=== PATIENT | male | born 1970 | race Two or more races ===

== ENCOUNTER 2024-12-12 19:04 | Emergency (ER) | payer MEDICAID, OTHER ==
[~2024-12-12] VITALS: Ht 188 cm; Wt 86.3 kg
[2024-12-12] MEDS ORDERED: SERT50TA PO (19:43)
[2024-12-12] MEDS ORDERED: ARIP2TAB PO (19:43)
--- NOTE | 2024-12-12 19:50 | ED.PDOC ---
History of Present Illness HPI Comments This is a 54-year-old male who comes in with chief complaint of needing his medication refilled for his schizophrenia. The patient recently was released from correction yesterday. He states that he was supposed to get medications from the crisis center but he was unable to get his Abilify as well as his Zoloft. The patient has been hearing voices but states that he was not suicidal but just concerned that he can not survive without his medication. The patient denies any nausea, vomiting or diarrhea. There has been no fever or chills. The patient was able to ambulate into the emergency department's without any difficulty. Chief Complaint: Mental Health Time Seen by MD: 19:14 Reviewed Notes: Nurses Notes, Medications, Allergies (Allergies listed above) Allergies: Coded Allergies: Ketorolac Tromethamine (Verified Allergy, Unknown, 12/12/24) Home Meds Active Scripts Aripiprazole (Abilify) 2 Mg Tab, 5 MG PO QAM for 30 Days, #30 TAB Prov:CARRI ROSE MD 12/12/24 Sertraline Hcl (Zoloft) 50 Mg Tab, 1 TAB PO QHSP PRN for 30 Days, #30 TAB 2 Refills Prov:CARRI ROSE MD 12/12/24 Information Source: Patient Mode of Arrival: Ambulatory Severity: Mild Timing: Days Duration: Since onset Prehospital treatment: None Associated signs and symptoms No nausea, vomiting or diarrhea Past Medical History PAST MEDICAL HISTORY: Depression, HTN, Schizophrenia Surgical History (Other): Right knee surgery Family History Family History: No family hx of Cancer, No family hx of DM, No family hx of Heart k[place] Social History Smoker: Cigarettes Alcohol: Denies ETOH Use Drugs: Marijuana Lives In: Home Constitutional: denies: chills, diaphoresis, fatigue, fever, malaise, sweats, weakness, others EENTM: denies: blurred vision, double vision, ear bleeding, ear discharge, ear drainage, ear pain, ear ringing, eye pain, eye redness, hearing loss, mouth pain, mouth swelling, nasal discharge, nose bleeding, nose congestion, nose pain, photophobia, tearing, throat pain, throat swelling, voice changes, others Respiratory: denies: cough, hemoptysis, orthopnea, SOB at rest, shortness of breath, SOB with excertion, stridor, wheezing, others Cardiovascular: denies: chest pain, dizzy spells, diaphoresis, Dyspnea on exertion, edema, irregular heart beat, left arm pain, lightheadedness, palpitations, PND, syncope, others Gastrointestinal: denies: abdomen distended, abdominal pain, blood streaked bowels, constipated, diarrhea, dysphagia, difficulty swallowing, hematemesis, melena, nausea, poor appetite, poor fluid intake, rectal bleeding, rectal pain, vomiting, others Genitourinary: denies: burning, dysuria, flank pain, frequency, hematuria, incontinence, penile discharge, penile sore, pain, testicle pain, testicle swelling, urgency, others Neurological: denies: dizziness, fainting, headache, left sided numbness, left sided weakness, numbness, paresthesia, pre-existing deficit, right sided numbness, right sided weakness, seizure, speech problems, tingling, tremors, weakness, others Musculoskeletal: denies: back pain, gout, joint pain, joint swelling, muscle pain, muscle stiffness, neck pain, others Integumetry: denies: bruises, change in color, change in hair/nails, dryness, laceration, lesions, lumps, rash, wounds, others Allergic/Immunocompromised: denies: Difficulty Healing, Frequent Infections, Hives, Itching, others Hematologic/Lymphatic: denies: anemia, blood clots, easy bleeding, easy bruising, swollen glands, others Endocrine: denies: excessive hunger, excessive sweating, excessive thirst, excessive urination, flushing, intolerance to cold, intolerance to heat, unexplained weight gain, unexplained weight loss, others Psychiatric: reports: schizophrenia, others (Hallucinations); denies: anxiety, bipolar disorder, depression, hopeless, panic disorder, sleepless, suicidal Physical Exam General Appearance: No Apparent Distress HEENT: Normal ENT Inspection, Pharynx Normal, TMs Normal Neck: Full Range of Motion, Non-Tender, Normal, Normal Inspection Respiratory: Chest Non-Tender, Lungs Clear, No Accessory Muscle Use, No Respiratory Distress, Normal Breath Sounds Cardiovascular: No Edema, No JVD, No Murmur, No Gallop, Normal Peripheral Pulses, Regular Rate/Rhythm Breast Exam: Deferred Gastrointestinal: No Organomegaly, Non Tender, No Pulsatile Mass, Normal Bowel Sounds, Soft Genitalia: Deferred Pelvic: Deferred Rectal: Deferred Extremities: No calf tenderness, Normal capillary refill, Normal inspection, Normal range of motion, Non-tender, No pedal edema Musculoskeletal : Apperance: Normal Neurologic: Alert, bank manager II-XII nml as Tested, No Motor Deficits, Normal Affect, Normal Mood, No Sensory Deficits Cerebellar Function: Normal Reflexes: Normal Skin: Dry, Normal Color, Warm Lymphatic: No Adenopathy Was a procedure done? Was a procedure done?: No Differential Dx Considerations may include: With suicidal ideation, depression, schizophrenia, hallucinations X-Ray, Labs, Meds, VS Vital Signs Date Time Temp Pulse Resp B/P (MAP) Pulse Ox O2 Delivery O2 Flow Rate FiO2 12/12/24 19:27 97.8 90 18 108/69 (82) 97 Current Medications Medications (Trade) Dose Ordered Sig/[place] Route Start Time Stop Time Status Last Admin Sertraline HCl (Zoloft) 50 mg ONCE ONCE PO 12/12/24 19:45 12/12/24 19:46 DC 12/12/24 19:51 The patient was given Zoloft here in the emergency department's The patient is receiving the prescription for the Abilify and Zoloft The patient was being discharged The patient will follow up with the primary care doctor The patient will return to the emergency department's the condition worsens. Time of 1ST Reevaluation: 19:49 Reevaluation 1ST: Unchanged Patient Education/Counseling: Diagnosis, Treatment, Prognosis, Need For Follow Up Family Education/Counseling: No Family Present Departure 1 Departure Time of Disposition: 19:54 Impression: Primary Impression: Schizophrenia Qualified Codes: F20.9 - Schizophrenia, unspecified Disposition: 01 HOME / SELF CARE / HOMELESS Condition: Fair e-Prescriptions Aripiprazole (Abilify) 2 Mg Tab 5 MG PO QAM for 30 Days, #30 TAB Prov: CARRI ROSE MD 12/12/24 Sertraline Hcl (Zoloft) 50 Mg Tab 1 TAB PO QHSP PRN for 30 Days, #30 TAB 2 Refills Prov: CARRI ROSE MD 12/12/24 Discharged With: Self Critical Care Note Critical Care Time?: No Stability Stability form required: No Heart Score Heart Score: Heart Score Response (Comments) Value History N/A 0 EKG N/A 0 Age N/A 0 Risk Factors N/A 0 Troponin N/A 0 Total 0 MILTON,CARRI Friend MD Dec 12, 2024 19:50
[2024-12-12] MEDS: SERTRALINE HCL 50 MG TAB PO ONE (19:51)
[2024-12-12 23:30] VITALS: BP 123/86; TEMP 98
[2024-12-12 23:32] VITALS: PULSE 82; RESP 16; O2SAT 96
== END 2024-12-12 23:41 | disposition home or self-care (01) ==
LOC: ER 19:04
DX: F20.9 Schizophrenia, unspecified (principal); F17.210 Nicotine dependence, cigarettes, uncomplicated; F32.A Depression, unspecified; I10 Essential (primary) hypertension; Z79.899 Other long term (current) drug therapy; Z98.890 Other specified postprocedural states; Z88.1 Allergy status to other antibiotic agents